=== PATIENT | female | born 1995 | race Caucasian/White ===

== ENCOUNTER 2017-01-13 21:00 | Emergency (ER) | payer OTHER, BC ==
[2017-01-13] MEDS ORDERED: ONDANSETRON 4 MG/2 ML VIAL IVP ONE (21:20)
[2017-01-13] MEDS ORDERED: NS 1,000 ML IV ONE (21:20)
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
[2017-01-13 21:34] LABS: % IMMATURE GRANULYOCYTES 0.3 % (0.0-1.1); ABSOLUTE IMMATURE GRANULOCYTES 0.04 10^3/uL (0.00-0.10); ADD DIFF? NO; ADD MORPH? NO; ADD SCAN? NO; ATYPICAL LYMPHOCYTE FLAG 30 (0-99); FRAGMENT RBC FLAG 0 (0-99); HEMATOCRIT 42.8 % (38.0-47.0); HEMOGLOBIN 14.9 g/dL (12.6-16.3); LEFT SHIFT FLG 0 (0-99); LIPEMIA HEMOLYSIS FLAG 90 (0-99); MEAN CELL HEMOGLOBIN 29.6 pg (27.9-34.1); MEAN CELL HEMOGLOBIN CONCENTR. 34.8 g/dL (32.4-36.7); MEAN CELL VOLUME 85.1 fL (81.5-99.8); PLATELET CLUMPS FLAG 0 (0-99); PLATELET COUNT 278 10^3/uL (150-400); RED BLOOD CELL COUNT 5.03 10^6/uL (4.18-5.33); RED CELL DISTRIBUTION WIDTH 14.4 % (11.5-15.2)
[2017-01-13 21:36] LABS: INR 1.04 (0.83-1.16); PROTIME(PATIENT) 13.5 SEC (12.0-15.0)
[2017-01-13 21:37] LABS: ANION GAP 16 mEq/L (8-16); APTT 27.6 SEC (23.0-38.0); CALCIUM 9.8 mg/dL (8.5-10.4); CARBON DIOXIDE 20 mEq/l (22-31); CHLORIDE 103 mEq/L (97-110); CREATININE 0.7 mg/dL (0.6-1.0); GLOMERULAR FILTRATION RATE > 60; GLUCOSE 101 mg/dL (70-100); POTASSIUM 3.4 mEq/L (3.5-5.2); SODIUM 139 mEq/L (134-144)
[2017-01-13] MEDS ORDERED: IOPAMIDOL (ISOVUE-300) 100 ML BTL ONE (21:53)
[2017-01-13] MEDS ORDERED: HYDROCOD/APAP 5/325 PREPACK#6 BTL TAKEHOME ONE (22:42)
[2017-01-13] MEDS ORDERED: KETOROLAC 30 MG/1 ML SDV IVP ONE (22:42)
[2017-01-13 22:45] LABS: COLOR PALE YELLOW; LEUKOCYTE ESTERASE,URINE NEGATIVE (NEGATIVE); NITRITE,URINE NEGATIVE (NEGATIVE)
[2017-01-13 22:56] LABS: BACTERIA TRACE /hpf (NONE SEEN); RBC,URINE 25-50 /hpf (0-3)
[2017-01-13 22:59] VITALS: O2SAT 98
[2017-01-13 23:11] VITALS: BP 130/86; PULSE 100; RESP 16; TEMP 98.1
== END 2017-01-13 23:12 | disposition home or self-care (01) ==
PROC: 3E0337Z Introduction of Electrolytic and Water Balance Substance into Peripheral Vein, Percutaneous Approach (ICD-10-PCS; principal; 2017-01-13)
DX: S10.83XA Contusion of other specified part of neck, initial encounter (principal); S80.02XA Contusion of left knee, initial encounter; S30.1XXA Contusion of abdominal wall, initial encounter; E86.9 Volume depletion, unspecified; V49.49XA Driver injured in collision with other motor vehicles in traffic accident, initial encounter; Y92.410 Unspecified street and highway as the place of occurrence of the external cause; Y99.8 Other external cause status; Y93.89 Activity, other specified
CPT/HCPCS: 82947-QW; 96374; J1885; J2405; Q9967